=== PATIENT | female | born 1945 | race Asian ===

== ENCOUNTER → 2016-08-10 | Outpatient (CLI) | payer BC ==
[2016-08-10 08:12] LABS: HEMOGLOBIN 13.1 gm/dl (12.3-15.3); RED BLOOD COUNT 4.35 M/UL (4.00-5.10); WHITE BLOOD COUNT 6.9 K/UL (4.5-11.0)
[2016-08-10 08:29] LABS: BUN/CREATININE RATIO 21 (0-10)
== END ==
LOC: LAB 07:35
PROVIDERS: Internal Medicine Geriatric Medicine
DX: I10 Essential (primary) hypertension (principal); E78.2 Mixed hyperlipidemia; E05.90 Thyrotoxicosis, unspecified without thyrotoxic crisis or storm
CPT/HCPCS: 36415; 80053; 80061; 82550; 83704; 84439; 84443; 85025

== ENCOUNTER → 2016-12-28 | Outpatient (CLI) | payer BC | LOC: HEART 5 07:48 | DX: R94.31 Abnormal electrocardiogram [ECG] [EKG] (principal); I08.1 Rheumatic disorders of both mitral and tricuspid valves; I37.1 Nonrheumatic pulmonary valve insufficiency | CPT/HCPCS: 78452; 93306; A9502; J2785 ==

== ENCOUNTER → 2020-06-07 | Outpatient (CLI) | payer BC, MEDICARE ==
[2020-06-08 12:14] LABS: CREATININE, URINE 40.8 mg/dL (Not Estab.)
== END ==
LOC: LAB 07:14
PROVIDERS: Internal Medicine Nephrology
DX: R80.9 Proteinuria, unspecified (principal)
CPT/HCPCS: 36415; 80048; 82043; 82570

== ENCOUNTER → 2020-06-24 | Outpatient (CLI) | payer BC, MEDICARE | LOC: KOH-I 13:26 | DX: N28.1 Cyst of kidney, acquired (principal); N26.1 Atrophy of kidney (terminal) | CPT/HCPCS: 76775 ==

== ENCOUNTER → 2020-08-05 | Outpatient (CLI) | payer BC, MEDICARE ==
[2020-08-05 10:20] LABS: BUN/CREATININE RATIO 18 (0-10)
== END ==
LOC: LAB 09:09
PROVIDERS: Internal Medicine Nephrology
DX: N18.30 Chronic kidney disease, stage 3 unspecified (principal)
CPT/HCPCS: 36415; 80048

== ENCOUNTER → 2020-09-15 | Outpatient (CLI) | payer BC, MEDICARE ==
[2020-09-16 11:15] LABS: CREATININE, URINE 34.6 mg/dL (Not Estab.)
== END ==
LOC: LAB 07:04
PROVIDERS: Internal Medicine Nephrology
DX: N18.30 Chronic kidney disease, stage 3 unspecified (principal)
CPT/HCPCS: 36415; 80048; 82043; 82570; 84156

== ENCOUNTER → 2020-12-16 | Outpatient (CLI) | payer BC, MEDICARE ==
[2020-12-16 12:13] LABS: BUN/CREATININE RATIO 12 (0-10)
[2020-12-17 10:15] LABS: CREATININE, URINE 22.6 mg/dL (Not Estab.)
== END ==
LOC: LAB 10:53
PROVIDERS: Internal Medicine Nephrology
DX: N18.31 Chronic kidney disease, stage 3a (principal)
CPT/HCPCS: 36415; 80048; 82043; 82570

== ENCOUNTER → 2021-01-27 | Outpatient (CLI) | payer BC, MEDICARE | LOC: LAB 09:53 | PROVIDERS: Internal Medicine Nephrology | DX: E87.6 Hypokalemia (principal) | CPT/HCPCS: 36415; 80048; 83735 ==

== ENCOUNTER → 2021-03-17 | Outpatient (CLI) | payer BC, MEDICARE | LOC: HEART 5 09:29 | DX: I35.0 Nonrheumatic aortic (valve) stenosis (principal) | CPT/HCPCS: 93306 ==

== ENCOUNTER → 2021-05-26 | Outpatient (CLI) | payer BC, MEDICARE ==
[2021-05-27 13:15] LABS: CREATININE, URINE 27.7 mg/dL (Not Estab.)
== END ==
LOC: US 05-19 14:00
PROVIDERS: Internal Medicine Nephrology
DX: N28.1 Cyst of kidney, acquired (principal); N18.31 Chronic kidney disease, stage 3a; N26.1 Atrophy of kidney (terminal)
CPT/HCPCS: 36415; 80048; 82043; 82570; 84156

== ENCOUNTER 2021-07-13 00:04 | Emergency (ER) | payer BC, MEDICARE ==
[2021-07-13] MEDS ORDERED: PREDNISONE 50 M50 MG PO (04:46)
== END 2021-07-13 04:55 | disposition home or self-care (01) ==
LOC: ER1 00:04
DX: R22.1 Localized swelling, mass and lump, neck (principal); I10 Essential (primary) hypertension; Z20.822 Contact with and (suspected) exposure to COVID-19
CPT/HCPCS: 70360; 70490; 96365; 96366; 96375; 99284; J0696; J1200; J2930; J3370; J7030; U0002

== ENCOUNTER → 2021-07-29 | Outpatient (CLI) | payer BC, MEDICARE ==
[~2021-07-29] MED LIST: PREDNISONE 50 M50 MG PO
[2021-07-30 09:14] LABS: CREATININE, URINE 8.4 mg/dL (Not Estab.)
== END ==
LOC: LAB 09:06
PROVIDERS: Internal Medicine Nephrology
DX: N18.31 Chronic kidney disease, stage 3a (principal)
CPT/HCPCS: 36415; 80048; 82043; 82570; 84156

== ENCOUNTER → 2021-09-21 | Outpatient (CLI) | payer BC, MEDICARE ==
[~2021-09-21] MED LIST changes: +ALDACTONE 25MG25 MG PO; +AMLODIPINE BESY10 MG PO; +COZAAR 50MG TAB50 MG PO; +CRESTOR 10 MG T10 MG PO; +METOPROLOL SUCC25 MG PO; +VITAMIN B12-FO1 EACH PO; +VITAMIN D21250 MCG PO; +VITAMIN K100 MCG PO; +ZINC50 M2 PO
== END ==
LOC: LAB 07:37
PROVIDERS: Internal Medicine Nephrology
DX: N18.31 Chronic kidney disease, stage 3a (principal)
CPT/HCPCS: 36415; 80048

== ENCOUNTER → 2021-09-22 | Day surgery (SDC) | payer BC, MEDICARE | END | disposition home or self-care (01) | LOC: OR 06:22 | DX: Z12.11 Encounter for screening for malignant neoplasm of colon (principal); D12.5 Benign neoplasm of sigmoid colon; K64.0 First degree hemorrhoids; K64.1 Second degree hemorrhoids; I10 Essential (primary) hypertension; E78.00 Pure hypercholesterolemia, unspecified; R63.6 Underweight; Z68.1 Body mass index [BMI] 19.9 or less, adult | CPT/HCPCS: J2704; J7040 ==

== ENCOUNTER 2021-11-23 06:57 | Emergency (ER) | payer BC, MEDICARE ==
[2021-11-23] MEDS ORDERED: ZANAFLEX2 MG PO (08:07)
== END 2021-11-23 08:55 | disposition home or self-care (01) ==
LOC: ER1 06:57
DX: S46.812A Strain of other muscles, fascia and tendons at shoulder and upper arm level, left arm, initial encounter (principal); I12.9 Hypertensive chronic kidney disease with stage 1 through stage 4 chronic kidney disease, or unspecified chronic kidney disease; N18.9 Chronic kidney disease, unspecified; Z88.1 Allergy status to other antibiotic agents; X50.9XXA Other and unspecified overexertion or strenuous movements or postures, initial encounter; Y92.89 Other specified places as the place of occurrence of the external cause; Y99.0 Civilian activity done for income or pay
CPT/HCPCS: 99283

== ENCOUNTER → 2021-12-02 | Outpatient (CLI) | payer BC, MEDICARE ==
[~2021-12-02] MED LIST changes: +ZANAFLEX2 MG PO
[2021-12-03 10:14] LABS: CREATININE, URINE 12.6 mg/dL (Not Estab.)
== END ==
LOC: LAB 07:12
PROVIDERS: Internal Medicine Nephrology
DX: N18.31 Chronic kidney disease, stage 3a (principal)
CPT/HCPCS: 36415; 80048; 81001; 82043; 82570; 84156

== ENCOUNTER → 2022-01-05 | Outpatient (CLI) | payer BC, MEDICARE | LOC: LAB 07:11 | PROVIDERS: Internal Medicine Nephrology | DX: R80.9 Proteinuria, unspecified (principal) | CPT/HCPCS: 36415; 80048 ==